=== PATIENT | female | born 1995 | race Caucasian/White ===

== ENCOUNTER 2022-07-07 11:19 | Emergency (ER) | payer OTHER ==
[2022-07-07 12:17] LABS: Bilirubin Neg (Negative); Blood, Urine Negative (Negative); Clarity Clear (Clear); Glucose, Urine (Dipstick) Normal (Negative); Ketone, Urine Negative (Negative); Leukocyte 500 (Negative); Nitrite Negative (Negative); Protein, Urine (Dipstick) Negative (Neg-Trace); Urobilinogen Normal mg/dL (Less than 2)
[2022-07-07 12:24] LABS: Bacteria/HPF 3+ HPF (None Seen); RBC/HPF 0-3 HPF (0-3)
[2022-07-07 23:08] LABS: Chlamydia by PCR Not Detected (NotDetected); GC by PCR Not Detected (NotDetected)
== END 2022-07-07 18:10 | disposition home or self-care (01) ==
LOC: CSHERS 11:19
DX: O23.92 Unspecified genitourinary tract infection in pregnancy, second trimester (principal); R82.71 Bacteriuria; Z3A.15 15 weeks gestation of pregnancy
CPT/HCPCS: 76815; 81003; 81015; 87086; 87480; 87491; 87510; 87591; 87660

== ENCOUNTER 2022-12-23 06:00 | Inpatient (IN) | payer OTHER ==
[2022-12-23 16:29] VITALS: BMI 33.6
[2022-12-23] MEDS ORDERED: Misoprostol 200 MCG TAB PR PRN (18:11)
[2022-12-23] MEDS ORDERED: hydrALAZINE 20 MG/ML VIAL SLOW IVP PRN (18:11)
[2022-12-23] MEDS ORDERED: Carboprost 250 MCG/ML AMP IM PRN (18:11)
[2022-12-23] MEDS ORDERED: Lidocaine 1% (PF) 30 ML VIAL SC PRN (18:11)
[2022-12-23] MEDS ORDERED: Promethazine HCl 25 MG/ML VIAL IM PRN (18:11)
[2022-12-23] MEDS ORDERED: HYDROcodone/Acetaminophen 5/325 mg Tablet PO PRN ×2 (18:11)
[2022-12-23] MEDS ORDERED: Diphenoxylate HCl/Atropine Tablet PO PRN ×2 (18:11)
[2022-12-23] MEDS ORDERED: Ondansetron PF 4 MG/2 ML Vial IVP PRN (18:11)
[2022-12-23] MEDS ORDERED: Methylergonovine 0.2 MG/ML VIAL IM PRN (18:11)
[2022-12-23] MEDS ORDERED: Ibuprofen 800 MG TAB PO PRN (18:11)
[2022-12-23] MEDS ORDERED: NS w/ Oxytocin 30 units 500 ML IV SCH ×2 (18:15)
[2022-12-23 19:11] LABS: Hemoglobin 10.9 g/dL (12.0-15.5); Mean Corpuscular HGB CONC 32.6 g/dL (32.0-36.0); Mean Corpuscular Hemoglobin 27.7 pg (27.0-33.0); Mean Platelet Volume 10.2 fl (7.4-10.4); Platelet Count 307 10x3/uL (150-450); RBC Distribution Width 13.8 % (11.5-14.5); Red Blood Cell (RBC) Count 3.93 10x6/uL (3.90-5.03); White Blood Cell (WBC) Count 10.8 10x3/uL (3.5-10.5)
[2022-12-23 19:38] LABS: Syphilis Antibody Nonreactive (Nonreactive); Syphilis Antibody Index 0.03 S/CO (<1.00 Non-Reactive)
[2022-12-23 19:39] LABS: HBSAg Index 0.25 S/CO (0-0.99); Hep B Surf Ag - L&D Non-Reactive S/CO (NonReactive)
[2022-12-23] MEDS: Misoprostol 100 MCG TAB VAG SCH ×2 (19:39→23:02)
[2022-12-24] MEDS: Misoprostol 100 MCG TAB VAG SCH ×2 (02:25→15:58)
[2022-12-24] MEDS ORDERED: Fentanyl 2 mcg/Bup 0.1% Cadd 100 ML ONE (04:48)
[2022-12-24] MEDS: Lactated Ringer's 1,000 ML IV SCH ×3 (05:10→15:58)
[2022-12-24] MEDS ORDERED: diphenhydrAMINE 50 MG/ML VIAL ONE ×2 (08:53→09:18)
[2022-12-24] MEDS ORDERED: Moisturizing Cream (Eucerin) 113 GM JAR TOP PRN (09:14)
[2022-12-24] MEDS ORDERED: Acetaminophen 325 MG TAB PO PRN (09:14)
[2022-12-24] MEDS ORDERED: Naloxone HCl 0.4 mg/ml Vial IVP PRN ×2 (09:14)
[2022-12-24] MEDS ORDERED: diphenhydrAMINE 50 MG/ML VIAL IVP PRN (09:14)
[2022-12-24] MEDS ORDERED: ePHEDrine Sulfate 50 MG/10 ML VIAL SLOW IVP PRN (09:14)
[2022-12-24] MEDS ORDERED: Ondansetron PF 4 MG/2 ML Vial IVP PRN (09:14)
[2022-12-24] MEDS ORDERED: Lactated Ringer's 500 ML IV PRN (09:14)
[2022-12-24] MEDS ORDERED: Promethazine HCl 25 MG/ML VIAL IM PRN (09:14)
[2022-12-24] MEDS ORDERED: Communication Order-Pharmacy FS SCH (09:15)
[2022-12-24] MEDS ORDERED: Fentanyl 2 mcg/Bupivacaine 0.1% Cassette 100 ML EPIDURAL SCH (09:15)
[2022-12-24] MEDS ORDERED: NS w/ Oxytocin 30 units 500 ML IV SCH (12:21)
[2022-12-24] MEDS ORDERED: Lanolin Ointment 7 GM TUBE TOP PRN (12:21)
[2022-12-24] MEDS ORDERED: Boostrix 0.5 ML (Tdap) VIAL (>/=7 yrs of age) IM ONE (12:21)
[2022-12-24] MEDS ORDERED: HYDROcodone/Acetaminophen 5/325 mg Tablet PO PRN (12:21)
[2022-12-24] MEDS ORDERED: Milk Of Magnesia 30 ML UDCUP PO PRN (12:21)
[2022-12-24] MEDS ORDERED: Misoprostol 200 MCG TAB VAG PRN (12:21)
[2022-12-24] MEDS ORDERED: Benzocaine-Menthol 82.5 ML CAN TOP PRN (12:21)
[2022-12-24] MEDS ORDERED: Bisacodyl 10 MG SUPP PR PRN (12:21)
[2022-12-24] MEDS ORDERED: hydrALAZINE 20 MG/ML VIAL SLOW IVP PRN (12:21)
[2022-12-24] MEDS: Ibuprofen 800 MG TAB PO SCH ×2 (15:37→22:07)
[2022-12-24] MEDS ORDERED: Ferrous Sulfate 325 MG TAB PO SCH (17:00)
[2022-12-24] MEDS: Docusate 100 MG CAP PO SCH (22:07)
[2022-12-24] MEDS: HYDROcodone/Acetaminophen 5/325 mg Tablet PO PRN (23:41)
[2022-12-25] MEDS: HYDROcodone/Acetaminophen 5/325 mg Tablet PO PRN (03:30)
[2022-12-25] MEDS: Ibuprofen 800 MG TAB PO SCH ×3 (06:12→21:24)
[2022-12-25] MEDS: Prenatal Vitamin 1 TAB PO SCH (08:57)
[2022-12-25] MEDS: Docusate 100 MG CAP PO SCH ×2 (08:57→21:24)
[2022-12-26] MEDS: Ibuprofen 800 MG TAB PO SCH (05:47)
[2022-12-26] MEDS: Prenatal Vitamin 1 TAB PO SCH (08:41)
[2022-12-26] MEDS: HYDROcodone/Acetaminophen 5/325 mg Tablet PO PRN ×2 (08:41→13:01)
[2022-12-26] MEDS: Docusate 100 MG CAP PO SCH (08:41)
[2022-12-26 14:05] VITALS: BP 112/74; TEMP 98.1
== END 2022-12-26 13:50 | disposition home or self-care (01) | DRG 807 ==
LOC: CSHLD 15:00 → UNDOADMIN 15:01 → UNDODISIN 12-24 05:10 → CSHPP 12-24 14:44
PROVIDERS: ADMIT Obstetrics & Gynecology; ATTEND Advanced Practice Midwife
PROC: 10E0XZZ Delivery of Products of Conception, External Approach (ICD-10-PCS; principal; 2022-12-24)
PROC: 10907ZC Drainage of Amniotic Fluid, Therapeutic from Products of Conception, Via Natural or Artificial Opening (ICD-10-PCS; 2022-12-24)
DX: O80 Encounter for full-term uncomplicated delivery (principal); Z37.0 Single live birth; Z3A.39 39 weeks gestation of pregnancy; Z90.89 Acquired absence of other organs; Z88.8 Allergy status to other drugs, medicaments and biological substances
CPT/HCPCS: 36416; 51702; 85027; 86780; 86850; 86900; 86901; 87340; J1200; J2405; J2590; J7120